=== PATIENT | female | born 1985 | race Caucasian/White ===

== ENCOUNTER 2017-01-16 14:23 | Emergency (ER) | payer OTHER ==
[~2017-01-16 14:23] MED LIST: ARISTOCORT A 0.15 G1 TOP; AUGMENTIN PO; BACLOFEN10 MG PO; BACTRIM DS TABL1 TA1 PO; BACTRIM DS TABL1 TAB PO; BENADRYL PO; BENZONATATE PO; BIRTH CONTROL PILL PO; CECLOR PO; CHANTIX1 MG PO; DARVOCET-N 1001 TAB PO; DESOWEN60 GM TOP; DICLOFENAC PO; EXCEDRIN MIGRAI1 TA1 PO; FLEXERIL PO; FLEXERIL10 MG PO; IBUPROFEN PO; KEFLEX; KEFLEX500 MG PO; KENALOG IN ORABA5 GM TOP; KETOPROFEN PO; KLONOPIN1 MG PO; LAMICTAL PO; LORTAB 10/500 T1 TAB; LORTAB 5/500 TA1 TA1 PO; LORTAB 7.5-5001 TAB PO; MEDROL PO; MEDROL4 MG/DOSE- PO; MINIPRESS PO; MOBIC PO; NEURONTIN PO; NEURONTIN800 MG PO; ORUDIS75 M1 DOB; ORUDIS75 M1 PO; PERCOCET5/325 PO; PHENERGAN; PHENERGAN DM1 ML PO; PHENERGAN PO; PHENERGAN25 MG PO; PRENATAL1 TA1 PO; TRILEPTAL PO; VICODIN 5/1 TAB 5/50 PO; VICODIN 5/500 T1 TAB; VICODIN 5/500 T1 TAB PO; VICODIN PO; VISTARIL PO; VOLTAREN75 MG PO; ZITHROMAX PO
== END 2017-01-16 14:31 | disposition home or self-care (01) ==
LOC: SED 14:23
DX: J06.9 Acute upper respiratory infection, unspecified (principal); H66.92 Otitis media, unspecified, left ear; Z87.891 Personal history of nicotine dependence; Z87.442 Personal history of urinary calculi; Z79.899 Other long term (current) drug therapy; Z88.8 Allergy status to other drugs, medicaments and biological substances
CPT/HCPCS: 99282

== ENCOUNTER 2017-01-27 12:19 | Emergency (ER) | payer OTHER ==
[2017-01-27 11:56] LABS: URINE SOURCE CLEAN CATCH
[2017-01-27 11:59] LABS: URINE APPEARANCE CLEAR; URINE BILIRUBIN NEG (NEG); URINE BLOOD TRACE-INTACT (NEG); URINE COLOR YELLOW; URINE GLUCOSE NEG (NORM); URINE KETONE NEG (NEG); URINE LEUKOCYTE ESTERASE TRACE (NEG); URINE NITRATE NEG (NEG); URINE PH 5.5 (5-8); URINE PROTEIN NEG (NEG); URINE SPECIFIC GRAVITY >=1.030 (1.003-1.035); URINE UROBILINOGEN 0.2 MG/DL (NORM)
[2017-01-27 12:06] LABS: MICRO INDICATED? YES
[2017-01-27 12:28] LABS: CULTURE INDICATED? YES; URINE BACTERIA 3+ (NEG); URINE SQUAMOUS EPITHELIAL CELL MANY /[HPF]
[2017-01-27 12:29] LABS: URINE MUCUS PRESENT
== END 2017-01-27 13:15 | disposition home or self-care (01) ==
LOC: SED 12:19
PROVIDERS: Physician Assistant
DX: N30.90 Cystitis, unspecified without hematuria (principal); Z87.442 Personal history of urinary calculi; Z88.1 Allergy status to other antibiotic agents; F43.10 Post-traumatic stress disorder, unspecified
CPT/HCPCS: 81003; 84703; 87086; 99283

== ENCOUNTER 2017-02-05 19:00 | Emergency (ER) | payer OTHER ==
--- NOTE | ~2017-02-05 | CT2 ---
[facility] A Service of [facility] RADIOLOGY TEXT RESULTS PATIENT: IVETT HERNANDEZ LOCATION: SEDOF : 83 UNIT #: [id number] AGE: [address]: Lisa Huddleston MD SEX: F ORDER DR: [id number] [address] [address] [id number] MR#: [id number] Acc #: [id number] NAME: IVETT HERNANDEZ : 1985 SEX: F STUDY DATE/TIME: 02/05/2017 20:51 UNIT: SEDOF ROOM: [facility] STUDY DESCRIPTION: CT Abd and Pelv W Cont Attending Physician: Lisa Huddleston M.D. Ordering Physician: Physician Non-Staff Primary Care Physician: [facility] MEDICAL IMAGING REPORT This report is preliminary unless electronic signature is present. EXAM CT abdomen and pelvis INDICATION Pain with urination. Back pain and left flank pain. Renal calculi. TECHNIQUE CT of the abdomen and pelvis utilizing 100 mL Isovue-370 IV contrast. Coronal and sagittal reconstructions were obtained. This CT exam was performed with one or more of the following radiation dose reduction techniques: automatic exposure control, adjustment of mA and/or kV according to patient size, and iterative reconstruction. COMPARISON CT abdomen and pelvis dated 09/06/2016. FINDINGS There are 2 wedge-shaped defects within the mid left kidney. This is most commonly associated with acute pyelonephritis. There is no hydronephrosis or ureteral calculi. No right renal calculi. The remaining solid abdominal organs are within normal limits. The gallbladder is surgically absent. The bowel is not dilated. There is a small umbilical hernia. The appendix is not identified and reported to be surgically absent. PELVIS: The uterus and ovaries are within normal limits. The bladder is unremarkable. No enlarged pelvic or inguinal lymph nodes. No acute osseous abnormalities. [facility] A Service [facility] RADIOLOGY TEXT RESULTS PATIENT: IVETT HERNANDEZ LOCATION: SEDOF : 83 UNIT #: [id number] AGE: [address]: Lisa Huddleston MD SEX: F ORDER DR: IMPRESSION Two areas of decreased perfusion in the mid left kidney. These are most consistent with acute pyelonephritis. Please confirm with urinalysis. Dictated by... Roni Puentes M.D. THIS IS AN ELECTRONICALLY VERIFIED REPORT Roni Puentes M.D. at 02/06/2017 3:25 PM ELIZABETH/ash TD: 02/05/2017 23:59 JOB #: [id number] MEDICAL IMAGING REPORT Page 1 of 1
[2017-02-05 19:24] LABS: URINE SOURCE CLEAN CATCH
[2017-02-05 19:27] LABS: URINE APPEARANCE HAZY; URINE BLOOD NEG (NEG); URINE COLOR YELLOW; URINE GLUCOSE NEG (NORM); URINE KETONE TRACE (NEG); URINE LEUKOCYTE ESTERASE 2+ (NEG); URINE NITRATE NEG (NEG); URINE PROTEIN TRACE (NEG)
[2017-02-05 19:31] LABS: MICRO INDICATED? YES; URINE BILIRUBIN NEG (NEG)
[2017-02-05 19:35] LABS: CULTURE INDICATED? YES; URINE BACTERIA 1+ (NEG); URINE MUCUS PRESENT; URINE SQUAMOUS EPITHELIAL CELL MANY /[HPF]; URINE WBC 50-100 /[HPF] (0-5)
[2017-02-05 20:28] LABS: BASOPHIL% 0.7 % (0-2.5); DIFF IND NO; EOSINOPHIL# 0.4 X10e3 (0-0.7); EOSINOPHIL% 5.3 % (0.0-7.0); HEMATOCRIT 35.9 % (35.0-45.0); HEMOGLOBIN 11.7 gm/dL (12.0-16.0); LYMPHOCYTE# 1.9 X10e3 (1.0-3.5); LYMPHOCYTE% 26.8 % (17.0-45.0); MEAN CELL VOLUME 85.4 FL (83-96); MEAN CORPUSCULAR HEMOGLOBIN 27.9 PG (28-34); MEAN CORPUSCULAR HGB CONC 32.6 g/dL (30-36); MONOCYTE# 0.6 X10e3 (0-1.0); MONOCYTE% 8.4 % (3.0-12.0); NEUTROPHIL# 4.2 X10e3 (1.5-7.1); NEUTROPHIL% 58.8 % (40-75); PLATELET COUNT 268 X10e3 (140-420); RED CELL DISTRIBUTION WIDTH 15.3 % (11.0-15.5); WHITE BLOOD COUNT 7.1 X10e3 (4.0-10.5)
[2017-02-05 20:38] LABS: ALBUMIN SERUM 3.6 g/dL (3.5-5.0); BILIRUBIN, DIRECT 0.1 mg/dL (0.0-0.2); BILIRUBIN,INDIRECT 0.2 mg/dL (0.0-0.9); BILIRUBIN,TOTAL 0.3 mg/dL (0.2-2.0); BUN/CREATININE RATIO 12.85; CALCIUM SERUM 8.5 mg/dL (8.4-10.2); CREATININE SERUM 0.7 mg/dL (0.6-1.4); GLOM FILT RATE Estimated 114.6 mL/min (>60); POTASSIUM 3.7 mmol/L (3.5-5.1); PROTEIN TOTAL SERUM 6.7 g/dL (6.0-8.3)
== END 2017-02-06 09:23 | disposition home or self-care (01) ==
LOC: SED 19:00
PROVIDERS: Nurse Practitioner Family
DX: N12 Tubulo-interstitial nephritis, not specified as acute or chronic (principal); Z87.442 Personal history of urinary calculi; Z87.891 Personal history of nicotine dependence; Z79.899 Other long term (current) drug therapy
CPT/HCPCS: 36415; 74177; 80048; 80076; 81003; 83605; 83690; 84703; 85025; 87086; 96374; 96375; 99285; J0696; J1170; J1885; J2405; J2550; Q9967

== ENCOUNTER 2017-06-03 20:18 | Emergency (ER) | payer OTHER ==
[~2017-06-03] VITALS: Ht 152.4 cm; Wt 111.1 kg
== END 2017-06-03 21:59 | disposition home or self-care (01) ==
LOC: SED 20:18
DX: H60.332 Swimmer's ear, left ear (principal); Z88.1 Allergy status to other antibiotic agents; Z79.899 Other long term (current) drug therapy
CPT/HCPCS: 99282